=== PATIENT | male | born 1990 | race African-American/Black ===

== ENCOUNTER 2017-03-05 10:53 | Emergency (ER) | payer BC ==
--- NOTE | 2017-03-11 09:20 | ER ---
ADMIT: 03/05/2017 RM/LOC: ER [facility] MR#: [id number] [id number] TAYLOR MONACO [address] [place] [address] Emergency Room Report SEX: M AGE: 26 : 1990 DATE: 03/05/2017 ADDENDUM: CHIEF COMPLAINT: Cough. HISTORY OF PRESENT ILLNESS: This a 26-year-old male, who has had a cough for about 3 days. He did have Zithromax leftover from a Z-Navi 6 months ago, so he took 2 of them on the first day. He has been using an albuterol inhaler and Phenergan with codeine for the cough, but sounds like he has run out of the Phenergan with codeine. Wondered if he also needs another antibiotic. At this time, I told him it is probably actually more viral, to hold off on antibiotics. I am giving him Phenergan with codeine to help with the cough. Told him to push fluids. Use Tylenol and Motrin for muscle aches and follow up primary care physician if worsen. CLINICAL IMPRESSION: Bronchitis. FLACO Rouse / Wilner Peterson MD / elke JOB #: [id number] CC: Wilner Peterson MD, Attending Physician UNKNOWN, Family Physician
== END 2017-03-05 11:56 | disposition home or self-care (01) ==
LOC: ER 10:53
DX: J40 Bronchitis, not specified as acute or chronic (principal); Z98.890 Other specified postprocedural states